=== PATIENT | female | born 1985 | race Caucasian/White ===

== ENCOUNTER 2020-06-05 11:47 | Emergency (ER) | payer BC, SELFPAY ==
--- NOTE | ~2020-06-05 | XR_ITS ---
EXAMINATION: XR chest 2V DATE: 06/05/2020 12:45 INDICATION: Shortness of breath and cough TECHNIQUE: PA and lateral views of the chest are obtained. COMPARISON: None available FINDINGS: The lungs are free of acute opacities. There is no pleural effusion or pneumothorax. The ca rdiomediastinal silhouette is normal. The visualized bones and soft tissues are unremarkable. IMPRESSION: 1. No acute cardiopulmonary abnormality. Reviewed, dictated and finalized at location A.
[2020-06-05 12:04] VITALS: BP 140/81; PULSE 72; RESP 18; TEMP 36.4; O2SAT 99
--- NOTE | 2020-06-05 12:19 | ED.GENADULT ---
HPI - General Adult General Chief complaint: Upper Respiratory Infection Stated complaint: Cold/Flu Sx Time Seen by Provider: 06/05/20 12:19 Source: patient Mode of arrival: ambulatory Limitations: no limitations History of Present Illness HPI narrative: 35-year-old female patient presents to the [facility] with complaints of cold and flu symptoms for the past 2 days. Patient states she is also now recently lost her sense of smell and taste. Patient states she has had a little bit of shortness of breath, and a slight nonproductive cough. Denies any fevers, body aches or chills. Patient states she has had some nasal congestion and some clogged ears. Patient states she is thought it was allergies at first and has been taking [id number] cold medication along with Zyrtec. Related Data Allergies Allergy/AdvReac Type Severity Reaction Status Date / Time No Known Allergies Allergy Unknown Unverified 09/20/07 00:03 Review of Systems Review of Systems: Narrative: CONSTITUTIONAL: Denies fever, chills, or sweats. EYES: Denies visual changes, redness, or discharge. ENT: Positive rhinorrhea, congestion, denies sore throat, or otalgia. Positive loss of smell and taste CARDIOVASCULAR: Denies chest pain, palpitations, or edema. RESPIRATORY: Positive nonproductive cough, denies dyspnea. GASTROINTESTINAL: Denies abdominal pain, nausea, vomiting, or diarrhea. GENITOURINARY: Denies dysuria or hematuria. SKIN: Denies rash or itching. MUSCULOSKELETAL: Denies back pain, joint pain, or myalgia. NEUROLOGIC: Denies headache, numbness, or weakness. PSYCHIATRIC: Denies anxiety or depression. PMFSH Comments At the time of my signature I agree with nursing past medical history, surgical, social, and family history. There is no relevant family history pertinent to the presenting complaint. Exam Narrative: Exam Narrative: GENERAL: ill-appearing, well-nourished, and in no acute distress. HEAD: Normocephalic, atraumatic. EYES: PERRLA and EOMI. ENT: Nares clear, no rhinorrhea or epistaxis. Mucous membranes moist. Posterior pharynx with no erythema, tonsillar erythema, exudates or lesions present. Bilateral TMs are clear with no erythema or foreign bodies in the canal. NECK: Supple. No lymphadenopathy CHEST: Clear to auscultation. No respiratory distress. Patient able to clear complete sentences. No tripoding noted. HEART: Regular rate and rhythm. No murmur heard. Normal peripheral pulses. ABDOMEN: Soft, nontender, nondistended, normal active bowel sounds. EXTREMITIES: Normal range of motion. No edema. SKIN: Warm, dry, no rash. NEURO: No focal deficits. Alert and oriented x3. Course Vital Signs Vital signs: Vital Signs Temperature 36.4 C L 06/05/20 12:04 Pulse Rate 72 06/05/20 12:04 Respiratory Rate 18 06/05/20 12:04 Blood Pressure 140/81 06/05/20 12:04 Pulse Oximetry 99 06/05/20 12:04 Temperature 36.4 C L 06/05/20 12:20 Pulse Rate 72 06/05/20 12:20 Respiratory Rate 18 06/05/20 12:20 Blood Pressure 140/81 06/05/20 12:20 Pulse Oximetry 99 06/05/20 12:20 Vital signs reviewed. The patient has been informed that they may have pre-hypertension or Hypertension based on a BP reading in the department. I recommend that the patient call the primary care provider listed on their discharge instructions or a physician of their choice this week to arrange follow up for further evaluation of possible pre-hypertension or Hypertension Medical Decision Making Differential Diagnosis Differential Diagnosis: Differential diagnosis: Allergic rhinitis, chronic sinusitis, tonsillitis, acute sinusitis, infectious mononucleosis, seasonal influenza, pertussis, diphtheria, meningococcal disease, viral syndrome, viral bronchitis, RSV, COVID-19 Discussed with patient that her influenza and strep test today are negative. Discussed with her that her x-ray is clear at this time. Discussed with patient that we will need to send her for Cov
[2020-06-05 12:20] VITALS: BP 140/81; PULSE 72; RESP 18; TEMP 36.4; O2SAT 99
--- NOTE | 2020-06-07 14:30 | PC.NURSE ---
called back in regard to test results for covid and strep. is currently speaking with provider mendez. positive for both.
== END 2020-06-05 13:04 | disposition home or self-care (01) ==
PROVIDERS: Emergency Provider Nurse Practitioner Family; PCP Physician Assistant
DX: J02.0 Streptococcal pharyngitis (principal); U07.1 COVID-19
CPT/HCPCS: 71046; 87081; 87147; 87804; 87880; 99213; G0463

== ENCOUNTER 2020-06-06 10:19 | Outpatient (NON) | payer BC, SELFPAY ==
[2020-06-06 20:47] LABS: SARS-CoV-2 RNA PCR Positive
== END 2020-06-06 10:20 ==
PROVIDERS: PCP Physician Assistant; Visit Provider Nurse Practitioner Family
DX: U07.1 COVID-19 (principal)
CPT/HCPCS: 87635; C9803; U0003

== ENCOUNTER → 2022-08-03 11:11 | Outpatient (CLI) | payer BC, SELFPAY ==
--- NOTE | ~2022-08-03 | US_ITS ---
US axilla RT 08/03/2022 11:31 Indication: Right axillary mass for months. Procedure: High-resolution Limited ultrasound of the right axilla in the area of palpable concern Comparison: No prior studies for comparison. Findings: At the area of palpable concern in the right axilla there is a normal-appearing lymph node measuring 8 x 6 x 4 mm. No suspicious masses are identified in the right breast to suggest malignancy . Impression: 1: Normal right axillary lymph node corresponds to the area of palpable concern. No suspicious abnorm alities. BI-RADS CATEGORY 2 - BENIGN FINDINGS Reviewed, dictated and finalized at location B. KNOCKER Impression: 1: Normal right axillary lymph node corresponds to the area of palpable concern . No suspicious abnormalities. BI-RADS CATEGORY 2 - BENIGN FINDINGS
== END ==
PROVIDERS: PCP Physician Assistant; Visit Provider Physician Assistant
DX: R22.31 Localized swelling, mass and lump, right upper limb (principal)
CPT/HCPCS: 76882

== ENCOUNTER 2024-12-10 15:17 | Outpatient (CLI) | payer BC, SELFPAY ==
--- NOTE | ~2024-12-10 | MM_ITS ---
EXAMINATION: MM screening lois BI w sofya HISTORY: Screening TECHNIQUE: Craniocaudal and mediolateral oblique 3-D tomosynthesis images were obtained and synthetic 2-D images were generated. CAD analysis was submitted and interpreted. COMPARISON: No prior mammogram is available for comparison at this institution. BREAST PARENCHYMAL COMPOSITION: Dense: The breasts are heterogeneously dense, which may obscure small masses FINDINGS: There is no evidence of suspicious mass, calcification, or architectural distortion to sugg est malignancy in either breast. There has been no suspicious interval change. IMPRESSION: 1. No mammographic evidence of malignancy. 2. Recommend routine screening mammography in one year. BI-RADS Category 1: Negative Reviewed, dictated and finalized at location A.
== END 2024-12-10 15:18 | disposition home or self-care (01) ==
LOC: MICIMG 15:21
PROVIDERS: PCP Physician Assistant; Visit Provider Physician Assistant
DX: Z12.31 Encounter for screening mammogram for malignant neoplasm of breast (principal)
CPT/HCPCS: 77063; 77067